=== PATIENT | female | born 1955 | race African-American/Black ===

== ENCOUNTER 2020-02-01 15:54 | Emergency (ER) | payer MEDICAID, OTHER ==
[~2020-02-01] VITALS: Ht 160 cm; Wt 72.6 kg
[~2020-02-01 15:54] MED LIST: CYCLOBENZAPRINE10 MG ORAL; NAPROXEN SODIU550 M1 ORAL; NORCO 5-325 TA1 EACH ORAL
[2020-02-01 16:20] VITALS: BP 136/81
--- NOTE | 2020-02-01 16:25 | NUR ---
ED Nurse Note: Patient walked in to ER and stated that she was bit by unknown dog in left lower leg yesterday. Patient presented calm, stated pain 2/10, VSS at this time.
--- NOTE | 2020-02-01 16:42 | Emergency Room Report ---
History of Present Illness General Chief Complaint: Animal Bite Source: Patient Present Illness HPI 64-year-old female with no known past medical history here complaining of a dog bite anterior left tib-fib. Patient reports that the dog bite happened yesterday and her neighbors dog. Leg. Obvious swelling noted anterior tib-fib. Is not up-to-date with tetanus shot. No pus drainage noted. Patient has range of motion, and is neurovascularly intact. Has not taken medication for symptom relief. Presents for pain. Dizziness but denies any fever or chills. Allergies: Coded Allergies: No Known Allergies (Unverified , 08/03/14) COVID-19 Screening Contact w/high risk pt: No Experienced COVID-19 symptoms?: No COVID-19 Testing performed RECOVERY ADVOCATE: No Patient History Past Medical History: see triage record Past Surgical History: none Pertinent Family History: none Now: No Immunizations: other - Tdap given today Reviewed Nursing Documentation: PMH: Agreed; PSxH: Agreed Nursing Documentation-PMH Past Medical History: No History, Except For Hx Hypertension: Yes Review of Systems All Other Systems: negative except mentioned in HPI Physical Exam Vital Signs Date Time Temp Pulse Resp B/P (MAP) Pulse Ox O2 Delivery O2 Flow Rate FiO2 02/01/20 16:09 98.1 71 16 136/81 (99) 99 Room Air Sp02 EP Interpretation: reviewed, normal General Appearance: no apparent distress, alert, GCS 15, non-toxic Head: normocephalic, atraumatic Eyes: bilateral eye normal inspection, bilateral eye PERRL ENT: hearing grossly normal, normal pharynx, no angioedema, normal voice Neck: full range of motion, supple/symm/no masses Respiratory: chest non-tender, lungs clear, normal breath sounds, speaking full sentences Cardiovascular #1: regular rate, rhythm, no edema Cardiovascular #2: 2+ dorsalis pedis (R), 2+ dorsalis pedis (L) Gastrointestinal: normal bowel sounds, non tender, soft, non-distended, no guarding, no rebound Genitourinary: no CVA tenderness Musculoskeletal: back normal, no calf tenderness, non-tender Psychiatric: judgement/insight normal, memory normal, mood/affect normal, no suicidal/homicidal ideation Skin: other - Cellulitis secondary to dog bite noted anterior left tib-fib Lymphatic: no adenopathy Medical Decision Making PA Attestation All my diagnosis and treatment plans were reviewed ad discussed with my supervising physician Dr. Lozano Diagnostic Impression: Primary Impression: Dog bite Additional Impression: Cellulitis ER Course 64-year-old female with no known past medical history here complaining of a dog bite anterior left tib-fib. Patient reports that the dog bite happened yesterday and her neighbors dog. Leg. Obvious swelling noted anterior tib-fib. Is not up-to-date with tetanus shot. No pus drainage noted. Patient has range of motion, and is neurovascularly intact. Has not taken medication for symptom relief. Presents for pain. Dizziness but denies any fever or chills. Ddx considered but are not limited to : Cellulitis, DVT, superficial infection, abscess Vital signs: are WNL, pt. is afebrile H&PE are most consistent with: Cellulitis left lower extremity secondary to dog bite ORDERS: Patient deferred x-ray, augmentin, ibuprofen ED INTERVENTIONS: Tdap, wound cleaned and dressed, first dose of Augmentin DISCHARGE: At this time pt. is stable for d/c to home. Will provide printed patient care instructions, and any necessary prescriptions. Care plan and follow up instructions have been discussed with the patient prior to discharge. Patient taken occasional tachycardia, follow-up with primary care provider, at this time narcotics are not indicated due to patient swelling in the area secondary to above. Patient agrees with this treatment. Patient to clean the wound every few hours, avoid going into Jacuzzi, hot, moist areas. If worsening symptoms return to the emergency room Last Vital Signs Date Time Temp Pulse Resp B/P (MAP) Pulse Ox O2 Delivery O2 Flow Rate FiO2 02/01/20 16:09 98.1 71 16 136/81 (99) 99 Room Air Disposition: HOME, SELF-CARE Condition: Stable Scripts Ibuprofen* (MOTRIN*) 600 Mg Tablet 600 MG ORAL Q6H PRN for For Pain, #30 TAB 0 Refills Prov: Yuriy Cummings 02/01/20 Amoxicillin/Potassium Clav 875-125* (AUGMENTIN 875-125 TABLET*) 1 Each Tablet 1 TAB ORAL TWICE A DAY for 10 Days, #20 TAB Prov: Yuriy Cummings 02/01/20 Patient Instructions: Animal Bite, Cellulitis, [id number] Additional Instructions: Take medication as directed, follow-up with your primary care provider, if worsening symptoms return to the emergency Yuriy Cummings Feb 01, 2020 16:42
[2020-02-01] MEDS ORDERED: Augmentin 875mg Tab ORAL ONE (16:45)
[2020-02-01] MEDS ORDERED: IBUPROFEN600 M1 ORAL (16:46)
[2020-02-01] MEDS ORDERED: AUGMENTIN 875-1 EAC1 ORAL (16:46)
[2020-02-01] MEDS ORDERED: Tetanus/Diptheria/Pertussis IM ONE ×2 (17:05→17:15)
[2020-02-01 17:23] VITALS: BP 136/81
--- NOTE | 2020-02-01 17:23 | NUR ---
ED Nurse Note: Pt cleared by health care Provider for discharge. DC instructions/prescription was given and explained to pt and verbalized understanding of teachings. All medical deviecs such as ID band removed. Pt is AAO x4, ambulatory and left with all personal belongings.
== END 2020-02-01 17:23 | disposition home or self-care (01) ==
LOC: EMR 16:30
DX: S81.852A Open bite, left lower leg, initial encounter (principal); W54.0XXA Bitten by dog, initial encounter; Y92.9 Unspecified place or not applicable; Z20.3 Contact with and (suspected) exposure to rabies; Z23 Encounter for immunization; L03.116 Cellulitis of left lower limb; I10 Essential (primary) hypertension; R42 Dizziness and giddiness
CPT/HCPCS: 90471; 90715; Z7502; 99282

== ENCOUNTER 2020-07-07 11:11 | Emergency (ER) | payer MEDICAID ==
[~2020-07-07] VITALS: Ht 165.1 cm; Wt 70.3 kg
[~2020-07-07 11:11] MED LIST changes: +AUGMENTIN 875-1 EAC1 ORAL; +IBUPROFEN600 M1 ORAL
--- NOTE | 2020-07-07 11:40 | Emergency Room Report ---
History of Present Illness General Chief Complaint: Finger pain Source: Patient Present Illness HPI Patient is a 65-year-old female presents for increased pain to the left hand. Reports having slammed the finger into a door. Injury occurred 2 days ago. Patient is right-hand dominant. Reports of increased pain and swelling. Pain is reportedly severe and worse with movement. Allergies: Coded Allergies: No Known Allergies (Unverified , 08/03/14) COVID-19 Screening Contact w/high risk pt: No Experienced COVID-19 symptoms?: No Patient History Reviewed Nursing Documentation: PMH: Agreed; PSxH: Agreed Nursing Documentation-PMH Hx Hypertension: Yes Review of Systems All Other Systems: negative except mentioned in HPI Physical Exam Sp02 EP Interpretation: reviewed, normal General Appearance: normal inspection, well appearing, no apparent distress, alert, GCS 15, non-toxic Head: atraumatic ENT: normal ENT inspection, hearing grossly normal, normal voice Neck: normal inspection, full range of motion, supple, no bony tend Respiratory: normal inspection, lungs clear, normal breath sounds, no re spiratory distress, no retraction, no wheezing Cardiovascular #1: regular rate, rhythm, no edema Gastrointestinal: normal inspection, normal bowel sounds, non tender, soft, no guarding, no hernia Genitourinary: no CVA tenderness Musculoskeletal: back normal, normal range of motion, swelling - finger swelling Neurologic: alert, motor strength/tone normal, production officer III-XII nml as tested, oriented x3, responsive, speech normal, normal inspection Psychiatric: normal inspection, judgement/insight normal, mood/affect normal Medical Decision Making Diagnostic Impression: Primary Impression: Finger fracture, left ER Course Patient was noted to have some patient presents for finger pain. Differential diagnosis include was not limited to fracture, dislocation, contusion, among others. X-ray imaging was ordered due to patient's recent trauma. Patient appears to have fracture to the finger. Patient was placed in a splint. She was given prescription of pain medications. Erythema and swelling and patient was given prescription for antibiotics in case there was some infection. She advised to follow-up with orthopedics for reassessment. She advised to keep her hand elevated and to return if any worsening condition or other concerns. This medical record is generated with [employer] wrapping machine operator software. There may be some wrapping machine operator discrepancies related to use of this software Status: improved Disposition: HOME, SELF-CARE Condition: Stable Scripts Amoxicillin/Potassium Clav 875-125* (AUGMENTIN 875-125 TABLET*) 1 Each Tablet 1 TAB ORAL TWICE A DAY, #14 TAB Prov: Saturnino Escobar MD 07/07/20 Acetaminophen* (ACETAMINOPHEN EXTRA STRENGTH*) 500 Mg Tablet 500 MG ORAL Q8H PRN for Fever/Headache/Mild Pain, #30 TAB Prov: Saturnino Escobar MD 07/07/20 Diclofenac Sodium (VOLTAREN) 100 Gm Gel..gram. 2 GM TP TWICE A DAY, #100 GM Prov: Saturnino Escobar MD 07/07/20 Saturnino Escobar MD Jul 07, 2020 11:40
[2020-07-07 12:01] VITALS: BP 169/80
[2020-07-07] MEDS ORDERED: VOLTAREN100 G1 TP (12:09)
[2020-07-07] MEDS ORDERED: ACETAMINOPHEN500 M3 ORAL (12:09)
[2020-07-07] MEDS ORDERED: AUGMENTIN 875-1 EAC1 ORAL (12:10)
[2020-07-07] MEDS: Acetaminophen 500mg (ES) tab ORAL ONE (12:13)
--- NOTE | 2020-07-07 12:29 | NUR ---
discharge home with instruction and rx follow up with pmd
--- NOTE | 2020-07-07 18:09 | Diagnostic Imaging Report ---
Indication: Fourth middle finger pain and swelling Technique: 3 views of the left fourth finger Comparison: none Findings: There is an impacted fracture deformity of the head and neck of the fourth middle phalanx. This appears acute on the AP view, less conclusively so on the orthogonal views. No radiopaque foreign body. There is some soft tissue swelling noted. The remaining visualized digits are unremarkable Impression: Acuity indeterminate but suspect acute impacted fracture of the fourth middle phalangeal head and neck
== END 2020-07-07 12:35 | disposition home or self-care (01) ==
LOC: EMR 12:34
DX: S62.625A Displaced fracture of middle phalanx of left ring finger, initial encounter for closed fracture (principal); W23.0XXA Caught, crushed, jammed, or pinched between moving objects, initial encounter; Y92.9 Unspecified place or not applicable; I10 Essential (primary) hypertension
CPT/HCPCS: 73140; Z7502; 99283